=== PATIENT | female | born 1995 | race Caucasian/White ===

== ENCOUNTER → 2022-08-20 | Outpatient (CLI) | payer OTHER ==
[2022-08-20 15:34] LABS: FREE T4 1.11 NG/DL (0.89-1.76); THYROID STIMULATING HORMONE 1.53 uIU/ML (0.55-4.78)
[2022-08-20 15:35] LABS: PROLACTIN 9.94 NG/ML
== END ==
LOC: M PLALAB 11:11
PROVIDERS: ATTEND Surgery
DX: N64.52 Nipple discharge (principal)

== ENCOUNTER → 2022-08-26 | Outpatient (CLI) | payer OTHER ==
[2022-08-26 15:15] VITALS: BP 118/72
== END ==
LOC: M WHCPRO 14:30
PROVIDERS: ATTEND Surgery
DX: R92.8 Other abnormal and inconclusive findings on diagnostic imaging of breast (principal); N63.41 Unspecified lump in right breast, subareolar